=== PATIENT | male | born 1970 | race Caucasian/White ===

== ENCOUNTER 2020-08-16 09:27 | Outpatient (REF) | payer OTHER, SELFPAY ==
[2020-08-16 10:34] LABS: MANUAL DIFF FLAG NO
[2020-08-16 10:42] LABS: Basophils Percent Auto 0.5 % (0-2); Eosinophils Absolute Auto 0.1 X10*3/uL (0.0-0.4); Eosinophils Percent Auto 1.6 % (0-4); Hematocrit 43.2 % (42-52); Hemoglobin 14.3 g/dl (14.0-18.0); Imm Gran Abs Auto 0.02 X10*3/uL (0.00-0.03); Imm Gran Pct Auto 0.4 % (0.0-0.4); Lymphocytes Absolute Auto 1.4 X10*3/uL (1.2-4.9); Lymphocytes Percent Auto 24.2 % (20-40); Mean Corpuscular HGB Conc 33.1 g/dl (31.0-36.0); Mean Corpuscular Hemoglobin 29.2 pg (27.0-33.0); Mean Corpuscular Volume 88.3 fL (80-98); Mean Platelet Volume 11.5 fL (9.4-12.4); Monocytes Absolute Auto 0.4 X10*3/uL (0.1-1.2); Monocytes Percent Auto 6.6 % (2-11); Neutrophils Absolute Auto 3.7 X10*3/uL (2.0-8.3); Neutrophils Percent Auto 66.7 % (45-73); Platelet Count 164 X10*3/uL (160-400); Red Blood Count 4.89 X10*6/uL (4.60-5.80); Red Cell Distribution Width 12.6 % (11.0-16.0); White Blood Count 5.6 X10*3/uL (4.8-10.8)
[2020-08-16 11:21] LABS: Alanine Aminotransferase 24 U/L (0-40); Albumin Level 4.6 g/dL (3.5-5.0); Alkaline Phosphatase 81 U/L (39-117); Anion Gap 13 (12-20); Aspartate Amino Transferase 18 U/L (5-37); Bilirubin Total 0.4 mg/dL (0.0-1.0); Blood Urea Nitrogen 19 mg/dL (9-16); Carbon Dioxide 26 mmol/L (22-29); Chloride 104 mmol/L (96-108); Cholesterol 255 mg/dL; Estimated Glomerular Filt Rate > 60; Glucose Random 101 mg/dL (60-115); HDL Cholesterol 34 mg/dL; LDL Cholesterol Calculated 184 mg/dl; Potassium 4.1 mmol/L (3.3-5.1); Sodium 139 mmol/L (135-145); Triglycerides 186 mg/dL
[2020-08-16 11:37] LABS: Calcium 11.2 mg/dL (8.4-10.2)
== END 2020-08-16 09:28 | disposition home or self-care (01) ==
LOC: HO.LAB 09:27
PROVIDERS: PCP Internal Medicine; Visit Provider Internal Medicine
DX: Z00.00 Encounter for general adult medical examination without abnormal findings (principal); E78.00 Pure hypercholesterolemia, unspecified
CPT/HCPCS: 36415; 80053; 80061; 85025

== ENCOUNTER 2020-10-03 09:53 | Outpatient (REF) | payer OTHER, SELFPAY ==
[2020-10-03 11:33] LABS: Alanine Aminotransferase 24 U/L (0-40); Albumin Level 4.5 g/dL (3.5-5.0); Alkaline Phosphatase 108 U/L (39-117); Anion Gap 12 (12-20); Aspartate Amino Transferase 23 U/L (5-37); Bilirubin Total 0.4 mg/dL (0.0-1.0); Blood Urea Nitrogen 19 mg/dL (9-16); Calcium 10.5 mg/dL (8.4-10.2); Carbon Dioxide 27 mmol/L (22-29); Chloride 106 mmol/L (96-108); Cholesterol 134 mg/dL; Estimated Glomerular Filt Rate > 60; Glucose Random 111 mg/dL (60-115); HDL Cholesterol 29 mg/dL; LDL Cholesterol Calculated 86 mg/dl; Potassium 4.3 mmol/L (3.3-5.1); Sodium 141 mmol/L (135-145); Total Protein 6.9 g/dL (6.5-8.0); Triglycerides 95 mg/dL
== END 2020-10-03 09:54 | disposition home or self-care (01) ==
LOC: HO.LAB 09:53
PROVIDERS: PCP Internal Medicine; Visit Provider Internal Medicine
DX: E78.00 Pure hypercholesterolemia, unspecified (principal); F32.89 Other specified depressive episodes; F41.0 Panic disorder [episodic paroxysmal anxiety]; Z72.0 Tobacco use
CPT/HCPCS: 36415; 80053; 80061

== ENCOUNTER → 2021-02-08 13:22 | Outpatient (BNVA) | payer OTHER, SELFPAY | PROVIDERS: PCP Internal Medicine; Visit Provider Nurse Practitioner ==

== ENCOUNTER 2021-04-30 07:23 | Day surgery (SDC) | payer OTHER, SELFPAY ==
--- NOTE | 2021-04-27 09:02 | P.CONAN_ITS ---
Documented by User: Demetrice Figueroa NP 04/27/21 09:02 HPI - Anesthesia Eval Consult details Narrative: 51yo M for Colonoscopy [facility] Active Problems Active Problems: All Active Problems (Updated 04/24/21 @ 13:14 by Emily Boggs, WILLIE) Colon cancer screening (Acute) Past Medical History Medical History Anxiety Depression GERD (gastroesophageal reflux disease) High cholesterol Panic disorder Tobacco use Family History Family History (Updated 02/08/21 @ 13:51 by NIELS Ch) Father Heart disease HTN (hypertension) Maternal Grandmother Ovarian cancer Surgical History Surgical History No pertinent past surgical history Social History Social History Patient Tobacco Use Status: Current everyday Tobacco user Tobacco use type: Cigarette Cigarettes Per Day: 10 Use of substances other than those prescribed or required for medical reasons: No Are you DNR?: No Advance Directives: No Advance Directives Information Provided: Yes Meds Allergies Allergy/AdvReac Type Severity Reaction Status Date / Time No Known Allergies Allergy Verified 04/24/21 13:13 Home Medications Medication Instructions Recorded Confirmed Last Taken Type sertraline 50 mg tablet 50 mg PO DAILY 11/29/20 04/24/21 Unknown History atorvastatin 40 mg tablet 40 mg PO DAILY 02/08/21 04/24/21 Unknown History Exam Exam Date and Time: April 27, 2021 0902 Assessment and Plan Assessment Anesthesia Assessment: Chart Reviewed Documented by User: Zeyad Rdz MD 04/30/21 08:17 [facility] Past Medical History Medical History Anxiety Depression GERD (gastroesophageal reflux disease) High cholesterol Panic disorder Tobacco use Family History Family History (Updated 02/08/21 @ 13:51 by NIELS Ch) Father Heart disease HTN (hypertension) Maternal Grandmother Ovarian cancer Family history of problems with anesthesia: No Surgical History Surgical History No pertinent past surgical history History of Problems with Anesthesia: No Social History Social History Patient Tobacco Use Status: Current everyday Tobacco user Tobacco use type: Cigarette Cigarettes Per Day: 10 Use of substances other than those prescribed or required for medical reasons: No Are you DNR?: No Advance Directives: No Advance Directives Information Provided: Yes Meds Allergies Allergy/AdvReac Type Severity Reaction Status Date / Time No Known Allergies Allergy Verified 04/24/21 13:13 Home Medications Medication Instructions Recorded Confirmed Last Taken Type sertraline 50 mg tablet 50 mg PO DAILY 11/29/20 04/24/21 Unknown History atorvastatin 40 mg tablet 40 mg PO DAILY 02/08/21 04/24/21 Unknown History Exam Airway Mallampati Class: II TM Dist: >3cm Neck ROM: Full Denture: Upper and Lower Loose/Missing/Broken Teeth: Yes Heart: [id number] Lungs: cta b/l Assessment and Plan Assessment Anesthesia Assessment: Anesthesia Plan Discussed Final Anesthetic Review Family History of Problems with Anesthesia: No History of Problems with Anesthesia: No NPO: Yes ASA Class: II Final Preanesthetic Review: No Changes in Pt Med Stat, Meds/Allgs Chart Reviewed, Consent Obtained/Reviewed and Anes Risks/Benef Reviewed Patient Risk: Intermediate Procedure Risk: Low Assessment/Block/Sedation in SS: Assess/Block/Sedation-SS Anesthetic Plan Anesthetic Plan: MAC: and Agree w/ Assess. and Plan Disposition: Standard PACU
[2021-04-30 07:47] VITALS: BMI 22.4
[2021-04-30 08:00] VITALS: BP 124/79; PULSE 81; RESP 16; TEMP 36.1; O2SAT 93
[2021-04-30] MEDS: Lactated Ringers 1,000 ML 100 ML IVCONT (08:24)
--- NOTE | 2021-04-30 08:26 | MHC.SHP ---
Pre-Procedural Eval Section A Date of Service: 04/30/21 Section B Chief Complaint: Screening Relevant Family History (Specify if Yes): No Relevant Social History: Tobacco Use Present Medications: see Short Stay Collaborative assessment Medical History: Significant History (Anxiety Depression GERD (gastroesophageal reflux disease) High cholesterol Panic disorder Tobacco use) History of Previous Operations: Relevant previous surgery/procedure and date(s) Allergies: Allergies Allergy/AdvReac Type Severity Reaction Status Date / Time No Known Allergies Allergy Verified 04/24/21 13:13 Review of Systems Sugical H&P ROS: Negative: Constitution, Cardiovascular, Respiratory, Neurological, Psychiatric, Hem-Onc, Allergic/Immunologic, Gastrointestinal, Genitourinary, Musculoskeletal, Integumentary, Endocrine and Eyes/Ears/Nose/Throat Exam Surgical H&P Exam: Normal: HEENT, Normal: Heart, Normal: Lungs, Normal: Extremities, Normal: Abdomen, Normal: Skin and Normal: Neurological Plan Diagnosis/Plan: Unchanged I have reviewed the history and physical and performed a pertinent physical examination on my patient. No changes have occurred unless specified.
--- NOTE | 2021-04-30 08:27 | P.BOP_ITS ---
Brief Operative Note Date of Service: 04/30/21 Pre-op diagnosis: screening Post-op diagnosis: same Procedure: see op note Surgeon: Atul Randolph MD Anesthesia: MAC Was an Photolettering Machine Operator used for this Procedure?: No Estimated blood loss (mL): 0 Condition: stable Disposition: PACU
--- NOTE | 2021-04-30 08:28 | W.PM.OPN ---
Operative Note Operative Note Date of Service: 04/30/21 Narrative: Operative Information Procedure Description: Colonoscopy COLONOSCOPY Instrument: Olympus variable stiffness pediatric scope 190L Colonoscopy Monitoring: Vital signs and clinical assessment, continuous EKG monitoring, Pulse oximetry, Carbon Dioxide monitoring and blood pressure monitoring were done throughout the procedure. Colon withdrawal time was 19 minutes. Procedure: The patient was placed in the left lateral decubitis position and pre-procedure medications were administered. After a digital rectal examination of the ano-rectum, the video colonoscope was inserted into the rectum and advanced through the colon to the cecum/TI. The colonoscope was slowly withdrawn in a retrograde panoramic fashion and the colon mucosa was carefully examined including a retroflexed view of the rectum. Findings and interventions are described below. Procedure Difficulty: easy Findings: Terminal Ileum-normal Cecum:normal Ascending Colon: x 1 sessile polyp 10 mm removed with cold snare Transverse Colon - x 3 sessile polyps 8-10 mm removed with cold snare Descending Colon:normal Sigmoid Colon: x 1 sessile polyp removed with forceps 5-6 mm, one segment of the the mucosa looked edematous so biopsy taken. Rectum: Retroflexion with small internal hemorrhoids, grade I, x 2 sessile polyps removed from rectum 7-8 mm with forceps Anorectum - normal Colon preparation: [place] Bowel Preparation Scale Right colon; 2 Transverse colon: 3 Left colon; 3 (0 = Unprepared colon segment with mucosa not seen due to solid stool that cannot be cleared. 1 = Portion of mucosa of the colon segment seen, but other areas of the colon segment not well seen due to staining, residual stool and/or opaque liquid. 2 = Minor amount of residual staining, small fragments of stool and/or opaque liquid, but mucosa of colon segment seen well. 3 = Entire mucosa of colon segment seen well with no residual staining, small fragments of stool or opaque liquid) Impression and Post Procedure Diagnosis: polyps internal hemorrhoids Plan: High fiber diet leaflet Avoid straining at stool, epsom salts and sitz bath, anusol supps or cream Repeat Colonoscopy in 1-2 years due to polyp burden or earlier if clinically indicated Above findings were reviewed with the patient and relevant handouts were provided if indicated.
[2021-04-30 09:05] VITALS: BP 123/72; PULSE 81; RESP 16; TEMP 36.8; O2SAT 94
[2021-04-30 09:21] VITALS: BP 122/80; PULSE 66; RESP 18; TEMP 36.8; O2SAT 100
== END 2021-04-30 10:08 | disposition home or self-care (01) ==
PROVIDERS: Visit Provider Internal Medicine Gastroenterology
PROC: 0DJD8ZZ Inspection of Lower Intestinal Tract, Via Natural or Artificial Opening Endoscopic (ICD-10-PCS; CPT 45378; principal; 2021-04-30 08:30)
DX: Z12.11 Encounter for screening for malignant neoplasm of colon (principal); D12.2 Benign neoplasm of ascending colon; D12.3 Benign neoplasm of transverse colon; K63.5 Polyp of colon; K62.1 Rectal polyp; K64.0 First degree hemorrhoids; K21.9 Gastro-esophageal reflux disease without esophagitis; E78.00 Pure hypercholesterolemia, unspecified; F32.9 Major depressive disorder, single episode, unspecified; F41.0 Panic disorder [episodic paroxysmal anxiety]; F17.210 Nicotine dependence, cigarettes, uncomplicated; Z79.899 Other long term (current) drug therapy
CPT/HCPCS: 45385; 45380; 88305

== ENCOUNTER → 2021-05-21 13:58 | Outpatient (BNVA) | payer OTHER, SELFPAY | PROVIDERS: Visit Provider Nurse Practitioner | DX: D12.6 Benign neoplasm of colon, unspecified (principal) | CPT/HCPCS: 99212 ==

== ENCOUNTER 2021-06-10 00:15 | Emergency (ER) | payer OTHER, SELFPAY ==
[2021-06-10 00:35] VITALS: BP 134/84; PULSE 82; RESP 16; TEMP 36.8; O2SAT 96; BMI 23.9
--- NOTE | 2021-06-10 01:34 | ED_ITS ---
HPI - Alcohol General Chief Complaint: ETOH/Substance Use Stated Complaint: etoh/fall (-loc +c-collar) Time Seen by Provider: 06/10/21 01:34 Source: patient Mode of arrival: EMS Limitations: no limitations History of Present Illness HPI narrative: 51-year-old male who presents emergency department for evaluation of an un witnessed fall secondary to alcohol intoxication. Patient states he has been binge drinking for the past 2 days. He states he has been drinking rum and vodka. He states this evening he got up, felt dizzy and fell at home. He states that he was unable to get up off the floor so he called 911. He denied any loss of consciousness he is not certain if he hit his head. He denied chest pain, abdominal pain, extremity pain. The patient was then transported to the emergency department for evaluation. Upon arrival, the patient is refusing x- rays or other evaluation is requesting to go home. He states he has been in alcohol detox programs in the past is not interested in pursuing detox at this time. He denied being suicidal or homicidal. Related Data Home Medications Medication Instructions Recorded Confirmed sertraline 50 mg tablet 50 mg PO DAILY 11/29/20 04/24/21 atorvastatin 40 mg tablet 40 mg PO DAILY 02/08/21 04/24/21 Previous Rx's Medication Instructions Recorded bisacodyl 5 mg tablet,delayed 10 mg PO BEDTIME 2 Days #4 tab 02/08/21 release (Dulcolax (bisacodyl)) peg 3350-electrolytes 236 240 ml PO Q10M 1 Days #4000 ml 02/08/21 gram-22.74 gram-6.74 gram-5.86 gram solution (Golytely) Allergies Allergy/AdvReac Type Severity Reaction Status Date / Time No Known Allergies Allergy Verified 05/21/21 14:06 Review of Systems Review of Systems: Yes all other systems are reviewed and are negative PMFSH Past Medical History PMFSH Narrative: Social history: The patient smokes 10 cigarettes per day times 20 years. He states that he binge drinks an alcohol and he has been drinking for the past 2 days. He denies drug use. Medical History Anxiety Depression GERD (gastroesophageal reflux disease) High cholesterol Panic disorder Tobacco use Surgical History H/O colonoscopy No pertinent past surgical history Family History Family History Father Heart disease HTN (hypertension) Maternal Grandmother Ovarian cancer Social History Social History Patient Tobacco Use Status: Current everyday Tobacco user Tobacco use type: Cigarette Cigarettes Per Day: 10 Advance Directives: No Advance Directives Information Provided: No Physical Exam Vital Signs: Vital Signs: Last Vital Signs Temp 98.3 F 06/10/21 00:35 Pulse 82 06/10/21 00:35 Resp 16 06/10/21 00:35 BP 134/84 06/10/21 00:35 Pulse Ox 96 06/10/21 00:35 BMI result Body Mass Index 23.9 Const: Other: Pleasant and cooperative male patient, he answers all questions appropriately, he is able to walk in the emergency department without any difficulty. HENMT: Head: Yes normal to inspection, Yes normocephalic and Yes atraumatic Ears: external ears normal General nose exam: Normal external nose present Face and sinus: Yes normal facial exam Mouth: Normal oral and palatal mucosa present Throat: Yes posterior oropharynx normal Eyes: General: appearance normal, both eyes and all related structures Pupils: Equal, round and reactive pupils present Neck: Neck: Yes normal visual inspection, Yes no lymphadenopathy, Yes trachea midline and Yes supple Chest: Chest palpation & inspection: normal inspection of the chest and normal palpation of entire chest wall Resp: Effort & Inspection: normal respiratory effort and able to speak in complete sentences Auscultation: clear to auscultation bilaterally Cardio: Rate: regular rate Rhythm: regular rhythm Heart sounds: S1 normal heart sound present, S2 normal heart sound present and no murmurs GI: Inspection: Yes normal to inspection Palpation (GI): Soft to palpation, nontender and no guarding Auscultation: normal bowel sounds : General: Yes no CVA tenderness Back/Spine/Pelvis: Back: no CVA tenderness Skin: General skin exam: no rashes or lesions noted Neuro: Cranial nerves: Yes CN's II-XII intact bilaterally and Yes Equal, round and reactive pupils present Cognition (Neuro): normal cognition Motor exam (neuro): 5/5 motor strength present throughout Extrem: General: Yes normal to inspection Psych: Appearance: grossly normal Speech and movement: Normal speech and movement present Affect: normal affect Attitude: cooperative Thought process: Normal thought process present Thought content: Normal thought content present, suicidality and no homicidality Course Course Course Narrative: 51-year-old male who presents emergency department for evaluation of alcohol intoxication and a fall that occurred at home. Patient states he has been binge drinking on rum and vodka for the past 2 days. The patient fell at home and was unable to get up so he called an ambulance. At the time of my evaluation, the patient has no complaints. Examination was unremarkable. The patient is refusing any further examinations such as CT scans or laboratory evaluation. The patient does not want detox at this time. The patient states he does have a sober ride thickened taking home therefore he will be discharged. Discharge Plan Discharge Clinical Impression: Alcoholic intoxication Qualifiers: Complication of substance-induced condition: uncomplicated Qualified Code(s): F10.920 - Alcohol use, unspecified with intoxication, uncomplicated Fall Qualifiers: Encounter type: initial encounter Qualified Code(s): W19.XXXA - Unspecified fall, initial encounter Patient Disposition: Home, Self-Care Instructions: Alcohol Use Disorder (ED) Additional Instructions: You should consider pursuing a detox program to help with your alcohol use disorder. Follow-up with your doctor in 2 days. Please return to the emergency department if your symptoms get worse or if you develop any symptoms that are concerning to you. Prescriptions: No Action sertraline 50 mg tablet 50 mg PO DAILY RF: 0 atorvastatin 40 mg tablet 40 mg PO DAILY RF: 0 bisacodyl [Dulcolax (bisacodyl)] 5 mg tablet,delayed release (DR/EC) 10 mg PO BEDTIME 2 Days Qty: 4 RF: 0 peg 3350-electrolytes [Golytely] 236-22.74-6.74 -5.86 gram recon soln 240 ml PO Q10M 1 Days Qty: 4000 RF: 0
--- NOTE | 2021-06-10 01:57 | PC.NURSE ---
I assumed care of this pt upon his arrival to bed 16. He presented via EMS for alcohol intoxication and a fall. He denies hitting his head. Denies LOC. he denies pain from the fall. he deneis SI. Denies HI. he states jhe recently relapsed after 6 months sober. He is not interested, at all, in any detox or treatment program. He was insistent on leaving the ED and, therefore Dr. Escobedo was kind enough to see the pt so that he could be discharged. he was discharged into the care of his brother who picked him up in the waiting room His gait was steady. No SOb. No CP. Speech clear and appropriate. He was calm and cooperative.
== END 2021-06-10 01:42 | disposition home or self-care (01) ==
PROVIDERS: Emergency Provider Emergency Medicine Emergency Medical Services
DX: F10.920 Alcohol use, unspecified with intoxication, uncomplicated (principal); F17.210 Nicotine dependence, cigarettes, uncomplicated; Z71.6 Tobacco abuse counseling; Z79.899 Other long term (current) drug therapy
CPT/HCPCS: 99283